=== PATIENT | male | born 1965 | race American Indian/Alaskan Native ===

== ENCOUNTER 2016-04-28 22:23 | Emergency (ER) | payer BC, OTHER ==
--- NOTE | 2016-04-29 04:19 | Emergency Department Report ---
ED Rash HPI - HPI Chief Complaint: Skin Rash Stated Complaint: SKIN IRRITATION Time Seen by Provider: 04/29/16 04:11 Rash Symptoms: Yes Itching, Yes Peeling, No Facial Swelling, No Tongue/Oral Swelling, No Breathing Difficulties, No Choking Sensation, No Wheezing/Dyspnea, No Blistering, No Fever Other History: Note: patient seen here 02/18/16 for similar complaints. He states he didn't follow up with pole shaver helper brookeue his car had broken down. He presents today with recurrent eczema flare up on his neck and back 3 weeks. States flared up after he finished his Triamcinolone cream and steroid. Reports itching and dry skin. Denies fever, chills, nausea, vomiting, chest pain, shortness of breath, abdominal pain, difficulty breathing, difficulty in swallowing. Denies new skin car/laundry products, change in environment. States he is aware of the side effects of frequent steroid use. ED Review of Systems ROS: Stated complaint: SKIN IRRITATION Other details as noted in HPI Comment: All other systems reviewed and negative ED Past Medical Hx - Past Medical History Previous Medical History?: No Additional medical history: eczema - Surgical History Past Surgical History?: No - Social History Smoking Status: Never Smoker Substance Use Type: None - Medications Home Medications: Home Medications Medication Instructions Recorded Confirmed Last Taken Type Prednisone [predniSONE 10 mg 10 mg PO .TAPER #1 tab.ds.pk 03/14/14 04/29/16 Unknown Rx (6-Day Pack, 21 Tabs)] predniSONE [Deltasone] 20 mg PO QDAY #5 tab 05/26/15 04/29/16 Unknown Rx Diphenhydramine HCl [Benadryl 25 mg PO Q6HR #20 tablet 12/13/15 04/29/16 Unknown Rx Allergy TAB] Triamcinolone 0.1% [Kenalog 0.1% 1 applic TP TID #60 gram 12/13/15 04/29/16 Unknown Rx CREAM] Triamcinolone 0.5% [Kenalog 0.5% 1 applic TP TID #1 tube 02/18/16 04/29/16 Unknown Rx CREAM] methylPREDNISolone [Medrol Dose 4 mg PO QAM #1 tab.ds.pk 02/18/16 04/29/16 Unknown Rx Maricruz] Rash Exam - Exam General: Vital signs noted. No distress. Alert and acting appropriately. HEENT: No Periorbital Edema, No Conjuctival Injection Lungs: Yes Good Air Exchange, No Wheezes, No Ronchi, No Stridor, No Cough, No Labored Respirations, No Retractions Heart: Yes Regular Skin: Yes Maculopapular Rash, Yes Excoriations, No Urticarial Rash, No Morbilliform rash, No Bulla(e), No Weeping, No Tenderness, No Erythema, No Edema , No Encrustations, No Other (dry, flaky rash on neck and back. No signs of infection.) Other: Positive: Abdomen Normal, Neurologic Normal, Musculoskeletal Normal ED Course Vital Signs 04/28/16 22:41 Temperature 98.6 F Pulse Rate 86 Respiratory 16 Rate Blood Pressure 134/76 O2 Sat by Pulse 100 Oximetry ED Medical Decision Making - Medical Decision Making 50 YO male whom frequents here for eczema requesting triamcinolone cream and steroid rx. Discussed the risks of frequent steroid use. Patient verbalized understanding. Patient is stable. He will be DC'd on Triamcinolone cream and Medrol dose maricruz (see rx). He is instructed to follow up with pole shaver helper to help manage this chronic condition. He verbalized understanding and is agreeable to plan. Critical care attestation.: If time is entered above; I have spent that time in minutes in the direct care of this critically ill patient, excluding procedure time. ED Disposition Clinical Impression: Eczema Qualifiers: Eczema type: unspecified Qualified Code(s): L30.9 - Dermatitis, unspecified Disposition: DISCHARGED TO HOME OR SELFCARE Is pt being admited?: No Does the pt Need Aspirin: No Condition: Stable Instructions: Eczema (ED) Additional Instructions: Follow instructions for care. Use medications as prescribed. Follow up with pole shaver helper for follow up. Return to ED for new or worsening condition. Referrals: RONA ALEXANDER MD [Staff Physician] - 3-5 Days PRIMARY CARE, [Primary Care Provider] - 3-5 Days
[2016-04-29 05:25] VITALS: BP 133/83
== END 2016-04-29 05:26 | disposition home or self-care (01) ==
LOC: ED 22:23
DX: L30.9 Dermatitis, unspecified (principal)
CPT/HCPCS: 99282

== ENCOUNTER 2018-04-08 16:25 | Emergency (ER) | payer BC, OTHER ==
--- NOTE | 2018-04-08 20:41 | Emergency Department Report ---
- General Chief complaint: Skin Rash Stated complaint: WRIST PAIN/ECZEMA Time Seen by Provider: 04/08/18 19:34 Source: patient Mode of arrival: Ambulatory Limitations: No Limitations - History of Present Illness Initial comments: 52-year-old [place] male. Past medical history of eczema department complaining of a flareup. Face is been having some flareup for the last 7 months and has not had any medications. She reports extreme pruritus. He also has been having chronically is painful with to 4-5 years years with decreased range of motion as well. Some swelling noted in crepitus. 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 No numbness or tingling. He denies any trauma. MD complaint: rash -: Gradual Tetanus Up to Date: no Location: generalized Quality: aching, dull Consistency: constant Improves with: none Worsens with: none Context: none Associated symptoms: itching, athralgias Treatments Prior to Arrival: none - Related Data Previous Rx's Medication Instructions Recorded Last Taken Type Prednisone [predniSONE 10 mg 10 mg PO .TAPER #1 tab.ds.pk 03/14/14 Unknown Rx (6-Day Pack, 21 Tabs)] predniSONE [Deltasone] 20 mg PO QDAY #5 tab 05/26/15 Unknown Rx Diphenhydramine HCl [Benadryl 25 mg PO Q6HR #20 tablet 12/13/15 Unknown Rx Allergy TAB] Triamcinolone 0.1% [Kenalog 0.1% 1 applic TP TID #60 gram 12/13/15 Unknown Rx CREAM] Triamcinolone 0.5% [Kenalog 0.5% 1 applic TP TID #1 tube 04/29/16 Unknown Rx CREAM] methylPREDNISolone [Medrol Dose 4 mg PO QAM #1 tab.ds.pk 04/29/16 Unknown Rx Richard] Mometasone Furoate [Elocon] 45 gm TP BID #1 cream..g. 04/08/18 Unknown Rx hydrOXYzine HCL [Atarax] 25 mg PO Q6HR PRN #20 tablet 04/08/18 Unknown Rx predniSONE [Deltasone] 50 mg PO QDAY #5 tab 04/08/18 Unknown Rx Allergies Allergy/AdvReac Type Severity Reaction Status Date / Time No Known Allergies Allergy Verified 03/31/16 16:21 Abscess Boil HPI - HPI Chief Complaint: Skin Rash Stated Complaint: WRIST PAIN/ECZEMA Time Seen by Provider: 04/08/18 19:34 Home Medications: Previous Rx's Medication Instructions Recorded Last Taken Type Prednisone [predniSONE 10 mg 10 mg PO .TAPER #1 tab.ds.pk 03/14/14 Unknown Rx (6-Day Pack, 21 Tabs)] predniSONE [Deltasone] 20 mg PO QDAY #5 tab 05/26/15 Unknown Rx Diphenhydramine HCl [Benadryl 25 mg PO Q6HR #20 tablet 12/13/15 Unknown Rx Allergy TAB] Triamcinolone 0.1% [Kenalog 0.1% 1 applic TP TID #60 gram 12/13/15 Unknown Rx CREAM] Triamcinolone 0.5% [Kenalog 0.5% 1 applic TP TID #1 tube 04/29/16 Unknown Rx CREAM] methylPREDNISolone [Medrol Dose 4 mg PO QAM #1 tab.ds.pk 04/29/16 Unknown Rx Richard] Mometasone Furoate [Elocon] 45 gm TP BID #1 cream..g. 04/08/18 Unknown Rx hydrOXYzine HCL [Atarax] 25 mg PO Q6HR PRN #20 tablet 04/08/18 Unknown Rx predniSONE [Deltasone] 50 mg PO QDAY #5 tab 04/08/18 Unknown Rx Allergies/Adverse Reactions: Allergies Allergy/AdvReac Type Severity Reaction Status Date / Time No Known Allergies Allergy Verified 03/31/16 16:21 ED Review of Systems ROS: Stated complaint: WRIST PAIN/ECZEMA Other details as noted in HPI Constitutional: denies: chills, fever Eyes: denies: eye pain, eye discharge, vision change ENT: denies: ear pain, throat pain Respiratory: denies: cough, shortness of breath, wheezing Cardiovascular: denies: chest pain, palpitations Endocrine: no symptoms reported Gastrointestinal: denies: abdominal pain, nausea, diarrhea Genitourinary: denies: urgency, dysuria Musculoskeletal: arthralgia. denies: back pain, joint swelling Skin: denies: rash, lesions Neurological: denies: headache, weakness, paresthesias Psychiatric: denies: anxiety, depression Hematological/Lymphatic: denies: easy bleeding, easy bruising ED Past Medical Hx - Past Medical History Previous Medical History?: Yes Additional medical history: eczema - Surgical History Past Surgical History?: No - Social History Smoking Status: Never Smoker Substance Use Type: None - Medications Home Medications: Home Medications Medication Instructions Recorded Confirmed Last Taken Type Prednisone [predniSONE 10 mg 10 mg PO .TAPER #1 tab.ds.pk 03/14/14 04/29/16 Unknown Rx (6-Day Pack, 21 Tabs)] predniSONE [Deltasone] 20 mg PO QDAY #5 tab 05/26/15 04/29/16 Unknown Rx Diphenhydramine HCl [Benadryl 25 mg PO Q6HR #20 tablet 12/13/15 04/29/16 Unknown Rx Allergy TAB] Triamcinolone 0.1% [Kenalog 0.1% 1 applic TP TID #60 gram 12/13/15 04/29/16 Unknown Rx CREAM] Triamcinolone 0.5% [Kenalog 0.5% 1 applic TP TID #1 tube 04/29/16 Unknown Rx CREAM] methylPREDNISolone [Medrol Dose 4 mg PO QAM #1 tab.ds.pk 04/29/16 Unknown Rx Richard] Mometasone Furoate [Elocon] 45 gm TP BID #1 cream..g. 04/08/18 Unknown Rx hydrOXYzine HCL [Atarax] 25 mg PO Q6HR PRN #20 tablet 04/08/18 Unknown Rx predniSONE [Deltasone] 50 mg PO QDAY #5 tab 04/08/18 Unknown Rx ED Physical Exam - General Limitations: No Limitations General appearance: alert, in no apparent distress - Head Head exam: Present: atraumatic, normocephalic - Eye Eye exam: Present: normal appearance - ENT ENT exam: Present: mucous membranes moist - Neck Neck exam: Present: normal inspection - Respiratory Respiratory exam: Present: normal lung sounds bilaterally. Absent: respiratory distress - Cardiovascular Cardiovascular Exam: Present: regular rate, normal rhythm. Absent: systolic murmur, diastolic murmur, rubs, gallop - GI/Abdominal GI/Abdominal exam: Present: soft, normal bowel sounds - Rectal Rectal exam: Present: deferred - Extremities Exam Extremities exam: Present: normal inspection, joint swelling (some pain to the wrist with palpation. There is some joint swelling and crepitus with range of motion. There is a decreased range of motion noted as well. Flexion and extension. Pulses are 2+) - Back Exam Back exam: Present: normal inspection - Neurological Exam Neurological exam: Present: alert, oriented X3 - Psychiatric Psychiatric exam: Present: normal affect, normal mood - Skin Skin exam: Present: warm, dry, intact, normal color, other (diffuse eczema rash to the back into the creases of the antecubital fossa and wrist region. There is some fissures noted to the back as well. No cellulitis, no lymphangitis.). Absent: rash - Expanded Skin Exam Expanded Type of lesion: Present: rash Distribution of rash: generalized 1 - eczena 2 - eczema 3 - eczemz 4 - eczema ED Course Vital Signs 04/08/18 16:40 Temperature 97.8 F Pulse Rate 76 Respiratory 18 Rate Blood Pressure 125/75 O2 Sat by Pulse 99 Oximetry Critical care attestation.: If time is entered above; I have spent that time in minutes in the direct care of this critically ill patient, excluding procedure time. ED Disposition Clinical Impression: Eczema, Arthritis Disposition: DC-01 TO HOME OR SELFCARE Is pt being admited?: No Does the pt Need Aspirin: No Condition: Stable Instructions: Eczema (ED), Osteoarthritis (ED) Referrals: PRIMARY CARE, [Primary Care Provider] - 3-5 Days [facility] [Provider Group] - 3-5 Days
== END 2018-04-08 20:50 | disposition home or self-care (01) ==
LOC: ED 16:25
DX: L30.9 Dermatitis, unspecified (principal)
CPT/HCPCS: 99282

== ENCOUNTER 2019-06-11 09:01 | Emergency (ER) | payer OTHER ==
[2019-06-11 09:14] VITALS: BP 108/72
--- NOTE | 2019-06-11 09:21 | Emergency Department Report ---
Chief Complaint: Upper Respiratory Infection Stated Complaint: TEST FOR COLD Time Seen by Provider: 06/11/19 09:16 - HPI History of Present Illness: 53 y/o male comes in for cough, sneezing, running eyes. Denies any fever, fatigue. No recent travels in the last 2 week. Has not tried any over the counter. - Exam Vital Signs: Vital Signs 06/11/19 09:12 Temperature 97.7 F Pulse Rate 75 Respiratory 18 Rate Blood Pressure 108/72 O2 Sat by Pulse 100 Oximetry Physical Exam: Axo times 3 NAD no coughing ambulatory without diff. MSE screening note: Focused history and physical exam performed. Due to findings the following was ordered: 53 y/o male comes in for cough, sneezing, running eyes. Denies any fever, fatigue. No recent travels in the last 2 week. Has not tried any over the counter. Recommend patient to take OTC meds and follow up with his PCP if he has any further concerns. ED Disposition for MSE Clinical Impression: Cough Disposition: Z-07 MED SCREENING EXAM-LEFT Is pt being admited?: No Does the pt Need Aspirin: No Condition: Stable Additional Instructions: Recommend patient to take OTC meds and follow up with his PCP if he has any further concerns. Forms: Work/School Release Form(ED)
== END 2019-06-11 09:37 | disposition left against medical advice (07) ==
LOC: ED 09:01
DX: R05 Cough (principal); Z53.21 Procedure and treatment not carried out due to patient leaving prior to being seen by health care provider

== ENCOUNTER 2019-10-02 10:29 | Emergency (ER) | payer OTHER ==
--- NOTE | 2019-10-02 10:57 | Event Note ---
ED Screening Note Date of service: 10/02/19 Time: 10:41 ED Screening Note: Patient presents with complaints of loss of taste, cough, shortness of breath, and body aches for the past week History of eczema, denies other medical history Fever noted in vitals of 100.9 Pulse ox 95 This initial assessment/diagnostic orders/clinical plan/treatment(s) is/are subject to change based on patients health status, clinical progression and re- assessment by fellow clinical providers in the ED. Further treatment and workup at subsequent clinical providers discretion. Patient/guardian urged not to elope from the ED as their condition may be serious if not clinically assessed and managed. Initial orders include: CXR
[2019-10-02] MEDS ORDERED: ACETAMINOPHEN 325 MG TAB PO ONE (11:01)
--- NOTE | 2019-10-02 11:53 | XRay Report ---
CHEST 2 VIEWS, 10/02/2019 10:58 AM INDICATION: Cough. COMPARISON: None FINDINGS: Support devices: None. Heart: The cardiac silhouette is normal in size. Lungs/pleura: The lungs are clear of focal airspace disease or significant pleural effusion. Additional findings: No significant acute abnormality. IMPRESSION: 1. No evidence of acute cardiopulmonary process. Signer Name: Marii Zarate MD Signed: 10/02/2019 11:49 AM Workstation Name: [id number]
[2019-10-02] MEDS ORDERED: guaiFENesin 100 MG/5 ML ORAL LIQD PO ONE (13:21)
--- NOTE | 2019-10-02 13:44 | Emergency Department Report ---
Minor Respiratory - HPI Chief Complaint: Upper Respiratory Infection Stated Complaint: FEVER/COUGH/HEADACHE/SOB Time Seen by Provider: 10/02/19 10:41 Duration: 2 Days Severity: mild Minor Respiratory: Yes Cough, No Rhinorrhea, No Sore Throat, No Able to Tolerate Fluids, No Ear Pain, No Sick Contacts, No Hemoptysis, No Chest Pain, No Shortness of Breath, No Fever Other History: This is a 53-year-old male with no prior medical conditions [place] presents the ED complaining of 2 days of intermittent coughing and fever. Patient states he has been taking Tylenol and has not noticed a fever. ED Review of Systems ROS: Stated complaint: FEVER/COUGH/HEADACHE/SOB Other details as noted in HPI Comment: All other systems reviewed and negative ED Past Medical Hx - Past Medical History Previous Medical History?: Yes Additional medical history: eczema - Surgical History Past Surgical History?: No - Social History Smoking Status: Never Smoker Substance Use Type: None - Medications Home Medications: Home Medications Medication Instructions Recorded Confirmed Last Taken Type Prednisone [predniSONE 10 mg 10 mg PO .TAPER #1 tab.ds.pk 03/14/04/29/16 Unknown Rx (6-Day Pack, 21 Tabs)] predniSONE [Deltasone] 20 mg PO QDAY #5 tab 05/26/15 04/29/16 Unknown Rx Diphenhydramine HCl [Benadryl 25 mg PO Q6HR #20 tablet 12/13/15 04/29/16 Unknown Rx Allergy TAB] Triamcinolone 0.1% [Kenalog 0.1% 1 applic TP TID #60 gram 12/13/15 04/29/16 Unknown Rx CREAM] Triamcinolone 0.5% [Kenalog 0.5% 1 applic TP TID #1 tube 04/29/16 Unknown Rx CREAM] methylPREDNISolone [Medrol Dose 4 mg PO QAM #1 tab.ds.pk 04/29/16 Unknown Rx Richard] Mometasone Furoate [Elocon] 45 gm TP BID #1 cream..g. 04/08/18 Unknown Rx hydrOXYzine HCL [Atarax] 25 mg PO Q6HR PRN #20 tablet 04/08/18 Unknown Rx predniSONE [Deltasone] 50 mg PO QDAY #5 tab 04/08/18 Unknown Rx Albuterol INH(or & Nicu Only) 2 puff IH QID PRN #8.5 gram 10/02/19 Unknown Rx [ProAir HFA Inhaler] Azithromycin [Zithromax TAB] 500 mg PO QDAY #7 tablet 10/02/19 Unknown Rx Benzonatate [Tessalon Perles] 100 mg PO Q8HR #30 capsule 10/02/19 Unknown Rx Minor Respiratory Exam - Exam General: Vital signs noted. No distress. Alert and acting appropriately. HEENT: Yes Moist Mucous Membranes, No Pharyngeal Erythema, No Pharyngeal Exudates, No Rhinorrhea, No Conjuctival Injection, No Frontal Tenderness, No Maxillary Tenderness Ear: Neither TM Bulge, Neither TM Erythema, Neither EAC Pain, Neither EAC Discharge Neck: Yes Supple, No Adenopathy Lungs: Yes Good Air Exchange, No Wheezes, No Ronchi, No Stridor, No Cough, No Labored Respirations, No Retractions, No Use of Accessory Muscles, No Other Abnormal Lung Sounds Heart: Yes Regular, No Murmur Abdomen: Yes Normal Bowel Sounds, No Tenderness, No Peritoneal Signs Skin: No Rash, No Edema Neurologic: Alert and oriented, no deficits. Musculoskeletal: Unremarkable. ED Course Vital Signs 10/02/19 10:42 Temperature 100.9 F H Pulse Rate 85 Respiratory 18 Rate Blood Pressure 113/64 [Left] O2 Sat by Pulse 95 Oximetry ED Medical Decision Making - Radiology Data Radiology results: report reviewed, image reviewed - Medical Decision Making 53-year-old male presents with upper respiratory symptoms Fever resolved no fever during the ED stay. Discussed with patient symptomatic relief with [id number] medications. Discussed with patient COVID-19 testing is appropriate and mandatory and should be done as soon as possible. Discussed with patient for 14-day quarantine if test is positive. Discussed worsening of symptoms patient should return to ED immediately. Patient oxygen saturation stayed at 97% on room air during exertion and after exertion. Discussed continue Tylenol as needed for fever and pain. Discussed increase fluids and diet intake. Discussed rest much needed. Discussed daily vitamin C for immune booster. Discussed follow-up with [facility] physician in 3-5 days. Patient verbally states he understands and will comply the following instructions and follow-up Vital signs stable. Patient is in no acute distress Critical care attestation.: If time is entered above; I have spent that time in minutes in the direct care of this critically ill patient, excluding procedure time. ED Disposition Clinical Impression: Upper respiratory infection Disposition: DC-01 TO HOME OR SELFCARE Is pt being admited?: No Does the pt Need Aspirin: No Condition: Stable Instructions: COVID-19, Upper Respiratory Infection (ED) Additional Instructions: Make sure to follow up with the primary care physician as discussed. Take all your medications as you've been prescribed. If you have any worsening symptoms or develop new symptoms please return to ED immediately. Prescriptions: Albuterol INH(or & Nicu Only) [ProAir HFA Inhaler] 2 puff IH QID PRN #8.5 gram PRN Reason: Shortness Of Breath Benzonatate [Tessalon Perles] 100 mg PO Q8HR #30 capsule Azithromycin [Zithromax TAB] 500 mg PO QDAY #7 tablet Referrals: PRIMARY CARE, [Primary Care Provider] - 3-5 Days [facility] [Outside] - 3-5 Days [facility] [place] [Outside] - 3-5 Days [facility] [Outside] - 3-5 Days Forms: Work/School Release Form(ED) Time of Disposition: 14:29
[2019-10-02] MEDS ORDERED: ONDANSETRON 4 MG ODT TAB PO ONE (14:39)
[2019-10-02] MEDS ORDERED: ACETAMINOPHEN 325 MG TAB ONE (14:40)
[2019-10-02 16:02] VITALS: BP 96/61
== END 2019-10-02 15:58 | disposition home or self-care (01) ==
LOC: ED 10:29
DX: J06.9 Acute upper respiratory infection, unspecified (principal); Z79.899 Other long term (current) drug therapy
CPT/HCPCS: 71046; Q0162

== ENCOUNTER 2021-04-05 21:04 | Emergency (ER) | payer SELFPAY ==
[2021-04-05 21:07] VITALS: BP 114/76
--- NOTE | 2021-04-06 00:36 | Emergency Department Report ---
- General Chief complaint: Skin Rash Stated complaint: ECZEMA Time Seen by Provider: 04/05/21 23:21 Source: patient Mode of arrival: Ambulatory Limitations: No Limitations - History of Present Illness Initial comments: 55-year-old [place] male out of his asthma medication and reports having an asthma exacerbation for the first time in over a year resulting in rash development to his face arms legs back which progressively worsening not responding to [id number] treatment presents emergency department seeking oral steroids and cream MD complaint: other -: Gradual Tetanus Up to Date: yes Location: generalized Severity: mild Quality: burning Consistency: constant Improves with: none Worsens with: none Context: none Associated symptoms: denies other symptoms, itching Treatments Prior to Arrival: none - Related Data Previous Rx's Medication Instructions Recorded Last Taken Type Prednisone [predniSONE 10 mg 10 mg PO .TAPER #1 tab.ds.pk 03/14/14 Unknown Rx (6-Day Pack, 21 Tabs)] predniSONE [Deltasone] 20 mg PO QDAY #5 tab 05/26/15 Unknown Rx Diphenhydramine HCl [Benadryl 25 mg PO Q6HR #20 tablet 12/13/15 Unknown Rx Allergy TAB] Triamcinolone 0.1% [Kenalog 0.1% 1 applic TP TID #60 gram 12/13/15 Unknown Rx CREAM] Triamcinolone 0.5% [Kenalog 0.5% 1 applic TP TID #1 tube 04/29/16 Unknown Rx CREAM] methylPREDNISolone [Medrol Dose 4 mg PO QAM #1 tab.ds.pk 04/29/16 Unknown Rx Richard] Mometasone Furoate [Elocon] 45 gm TP BID #1 cream..g. 04/08/18 Unknown Rx hydrOXYzine HCL [Atarax] 25 mg PO Q6HR PRN #20 tablet 04/08/18 Unknown Rx predniSONE [Deltasone] 50 mg PO QDAY #5 tab 04/08/18 Unknown Rx Albuterol Mdi (or & Nicu Only) 2 puff IH QID PRN #8.5 gram 10/02/19 Unknown Rx [ProAir HFA Inhaler] Azithromycin [Zithromax TAB] 500 mg PO QDAY #7 tablet 10/02/19 Unknown Rx Benzonatate [Tessalon Perles] 100 mg PO Q8HR #30 capsule 10/02/19 Unknown Rx Betamethasone/Propylene Glyc 1 gm TP BID #50 g 04/05/21 Unknown Rx [Diprolene 0.05% Ointment] predniSONE [Deltasone] 50 mg PO QDAY #6 tab 04/05/21 Unknown Rx Allergies Allergy/AdvReac Type Severity Reaction Status Date / Time No Known Allergies Allergy Verified 03/31/16 16:21 Abscess Boil HPI - HPI Chief Complaint: Skin Rash Stated Complaint: ECZEMA Time Seen by Provider: 04/05/21 23:21 Home Medications: Previous Rx's Medication Instructions Recorded Last Taken Type Prednisone [predniSONE 10 mg 10 mg PO .TAPER #1 tab.ds.pk 03/14/14 Unknown Rx (6-Day Pack, 21 Tabs)] predniSONE [Deltasone] 20 mg PO QDAY #5 tab 05/26/15 Unknown Rx Diphenhydramine HCl [Benadryl 25 mg PO Q6HR #20 tablet 12/13/15 Unknown Rx Allergy TAB] Triamcinolone 0.1% [Kenalog 0.1% 1 applic TP TID #60 gram 12/13/15 Unknown Rx CREAM] Triamcinolone 0.5% [Kenalog 0.5% 1 applic TP TID #1 tube 04/29/16 Unknown Rx CREAM] methylPREDNISolone [Medrol Dose 4 mg PO QAM #1 tab.ds.pk 04/29/16 Unknown Rx Richard] Mometasone Furoate [Elocon] 45 gm TP BID #1 cream..g. 04/08/18 Unknown Rx hydrOXYzine HCL [Atarax] 25 mg PO Q6HR PRN #20 tablet 04/08/18 Unknown Rx predniSONE [Deltasone] 50 mg PO QDAY #5 tab 04/08/18 Unknown Rx Albuterol Mdi (or & Nicu Only) 2 puff IH QID PRN #8.5 gram 10/02/19 Unknown Rx [ProAir HFA Inhaler] Azithromycin [Zithromax TAB] 500 mg PO QDAY #7 tablet 10/02/19 Unknown Rx Benzonatate [Tessalon Perles] 100 mg PO Q8HR #30 capsule 10/02/19 Unknown Rx Betamethasone/Propylene Glyc 1 gm TP BID #50 g 04/05/21 Unknown Rx [Diprolene 0.05% Ointment] predniSONE [Deltasone] 50 mg PO QDAY #6 tab 04/05/21 Unknown Rx Allergies/Adverse Reactions: Allergies Allergy/AdvReac Type Severity Reaction Status Date / Time No Known Allergies Allergy Verified 03/31/16 16:21 ED Review of Systems ROS: Stated complaint: ECZEMA Other details as noted in HPI Comment: All other systems reviewed and negative ED Past Medical Hx - Past Medical History Previous Medical History?: Yes Additional medical history: eczema - Surgical History Past Surgical History?: No - Social History Smoking Status: Never Smoker Substance Use Type: None - Medications Home Medications: Home Medications Medication Instructions Recorded Confirmed Last Taken Type Prednisone [predniSONE 10 mg 10 mg PO .TAPER #1 tab.ds.pk 03/14/14 04/29/16 Unknown Rx (6-Day Pack, 21 Tabs)] predniSONE [Deltasone] 20 mg PO QDAY #5 tab 05/26/15 04/29/16 Unknown Rx Diphenhydramine HCl [Benadryl 25 mg PO Q6HR #20 tablet 12/13/15 04/29/16 Unknown Rx Allergy TAB] Triamcinolone 0.1% [Kenalog 0.1% 1 applic TP TID #60 gram 12/13/15 04/29/16 Unknown Rx CREAM] Triamcinolone 0.5% [Kenalog 0.5% 1 applic TP TID #1 tube 04/29/16 Unknown Rx CREAM] methylPREDNISolone [Medrol Dose 4 mg PO QAM #1 tab.ds.pk 04/29/16 Unknown Rx Richard] Mometasone Furoate [Elocon] 45 gm TP BID #1 cream..g. 04/08/18 Unknown Rx hydrOXYzine HCL [Atarax] 25 mg PO Q6HR PRN #20 tablet 04/08/18 Unknown Rx predniSONE [Deltasone] 50 mg PO QDAY #5 tab 04/08/18 Unknown Rx Albuterol Mdi (or & Nicu Only) 2 puff IH QID PRN #8.5 gram 10/02/19 Unknown Rx [ProAir HFA Inhaler] Azithromycin [Zithromax TAB] 500 mg PO QDAY #7 tablet 10/02/19 Unknown Rx Benzonatate [Tessalon Perles] 100 mg PO Q8HR #30 capsule 10/02/19 Unknown Rx Betamethasone/Propylene Glyc 1 gm TP BID #50 g 04/05/21 Unknown Rx [Diprolene 0.05% Ointment] predniSONE [Deltasone] 50 mg PO QDAY #6 tab 04/05/21 Unknown Rx ED Physical Exam - General Limitations: No Limitations General appearance: alert, in no apparent distress - Head Head exam: Present: atraumatic, normocephalic - Eye Eye exam: Present: normal appearance, PERRL, EOMI, other Pupils: Present: normal accommodation - ENT ENT exam: Present: normal exam, normal orophraynx, mucous membranes moist - Neck Neck exam: Present: normal inspection - Respiratory Respiratory exam: Present: normal lung sounds bilaterally. Absent: respiratory distress - Cardiovascular Cardiovascular Exam: Present: regular rate, normal rhythm. Absent: systolic murmur, diastolic murmur, rubs, gallop - GI/Abdominal GI/Abdominal exam: Present: soft, normal bowel sounds - Rectal Rectal exam: Present: deferred - Extremities Exam Extremities exam: Present: normal inspection - Back Exam Back exam: Present: normal inspection - Neurological Exam Neurological exam: Present: alert, oriented X3 - Psychiatric Psychiatric exam: Present: normal affect, normal mood - Skin Skin exam: Present: warm, dry, intact, normal color, other (Having an eczema rash to the neck to antecubital fossa forearms to the back periorbital region areas on the legs). Absent: rash ED Course Vital Signs 04/05/21 21:06 Temperature 98.6 F Pulse Rate 77 Respiratory 18 Rate Blood Pressure 114/76 O2 Sat by Pulse 100 Oximetry ED Medical Decision Making - Medical Decision Making 35-year-old male female department with a simple asthma exacerbation no evidence of any other cysts systemic your left tendon issues were discovered refilled his his general eczema medication advised him to remain compliant and follow-up with primary care provider for further evaluation and management of this issue Critical care attestation.: If time is entered above; I have spent that time in minutes in the direct care of this critically ill patient, excluding procedure time. ED Disposition Clinical Impression: Eczema Disposition: 01 HOME / SELF CARE / HOMELESS Is pt being admited?: No Does the pt Need Aspirin: No Condition: Stable Instructions: Eczema Prescriptions: predniSONE [Deltasone] 50 mg PO QDAY #6 tab Betamethasone/Propylene Glyc [Diprolene 0.05% Ointment] 1 gm TP BID #50 g Referrals: CARBUCCIA,CEM, MD [Staff Physician] - 3-5 Days
== END 2021-04-06 01:56 | disposition home or self-care (01) ==
LOC: ED 21:04
DX: L30.9 Dermatitis, unspecified (principal)
CPT/HCPCS: 99282